=== PATIENT | male | born 1980 | race Caucasian/White ===

== ENCOUNTER 2020-09-26 21:11 | Emergency (ER) | payer BC, SELFPAY ==
[2020-09-26 21:14] VITALS: BP 153/91; PULSE 84; RESP 16; TEMP 36.8; O2SAT 98; BMI 33.0
--- NOTE | 2020-09-26 21:37 | ED_ITS ---
HPI - Extremity Problem General: Chief complaint: Extremity Problem,Nontraumatic Stated complaint: LFT FOOT PAIN Time Seen by Provider: 09/26/20 21:16 Source: patient Mode of arrival: ambulatory Limitations: no limitations History of Present Illness: HPI Narrative: Patient comes in for left lateral foot pain. Patient reports doing some training at work on Monday. 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 Patient was doing [place] straining and was walking barefoot on mats. Since then patient has had increased pain and discomfort to the left lateral foot at the fifth MTP joint. No obvious deformity is noted minimal swelling is noted. Review of Systems General: Reports: 10 or more systems reviewed and unremarkable except in HPI and below Musc: Reports: other (Left foot pain.) Physical Exam Const: COMMON NORMALS: no acute distress and patient oriented x3 GENERAL APPEARANCE: cooperative HENMT: COMMON NORMALS: normocephalic and Normal external nose present HEAD & SCALP: normal to inspection and normocephalic NOSE: Normal external nose present Eye: GENERAL EYE: appearance normal, both eyes and all related structures Neck/C-Spine: COMMON NORMALS: full ROM Chest: COMMONS NORMALS: normal inspection of the chest Resp: COMMON NORMALS: normal respiratory effort EFFORT & INSPECTION: Yes able to speak in complete sentences Cardio: COMMON NORMALS: regular rate and regular rhythm RATE: regular rate RHYTHM: regular rhythm GI: COMMON NORMALS: non-tender Extremity: NARRATIVE EXTREMITY EXAM: Tenderness is noted to the fifth MTP joint of the left foot. No obvious swelling or deformity is noted. No redness or ecchymosis is noted. Neuro: COMMON NORMALS: patient oriented x3 and moves all extremities Psych: COMMON NORMALS: mental status grossly normal and cooperative Skin: COMMON NORMALS: no rashes or lesions noted GENERAL SKIN EXAM: no rashes or lesions noted Course Vital Signs: Vital signs: Vital Signs Temperature 98.2 F 09/26/20 21:14 Pulse Rate 84 09/26/20 21:14 Respiratory Rate 16 09/26/20 21:14 Blood Pressure 153/91 09/26/20 21:14 Pulse Oximetry 98 09/26/20 21:14 MDM - Extremity (Nontraumatic) MDM Narrative: Medical decision making narrative: Patient comes in today for complaints of left foot pain. On exam patient has tenderness to the fifth MTP joint of the left foot. No obvious deformity, significant swelling or redness is noted to the joint. Differential diagnosis includes tendinitis, arthritis, stress fracture. Feel the patient probably does have some tendinitis to the area of foot. Patient rarely goes without shoes and was going barefoot on maps and probably just aggravated the joint and tendon in his foot. We will treat the patient with some prednisone and diclofenac for short course. Patient was recommended to follow-up with podiatry for persistent symptoms. Patient r eported understanding agreed to plan. Discharge Plan Discharge Patient Disposition: Home Clinical Impression: Arthralgia of foot, left Condition: Stable Prescriptions: New diclofenac sodium 75 mg tablet,delayed release (DR/EC) 75 mg PO BID Qty: 20 RF: 0 prednisone 20 mg tablet 20 mg PO BID 5 Days Qty: 10 RF: 0 Discharge Orders: Discharge ED (Routine); Ordered 09/26/20 Ordered By: Andres Lindsey Referrals: Juan Wallace DO [Emergency Department] - Discharge Diet: Usual diet Discharge Activity: Increase activity as tolerated Patient Instructions: Arthralgia (ED), Opioid Safety Stand Alone Forms: Work/School Release Coding Level of Care Code ED [employer] Bever[employer] Associate for Alpesh Noyola
[2020-09-26] MEDS: predniSONE 20 mg Tablet 60 MG PO (21:54)
[2020-09-26] MEDS: ketorolac 10 mg Tablet PO (21:54)
[2020-09-26 22:01] VITALS: RESP 15
== END 2020-09-26 22:01 | disposition home or self-care (01) ==
PROVIDERS: Emergency Provider Nurse Practitioner Family; PCP Family Medicine
DX: M25.572 Pain in left ankle and joints of left foot (principal)
CPT/HCPCS: 99283; J7512

== ENCOUNTER → 2024-07-08 15:57 | Outpatient (BNVA) | payer BC, SELFPAY | PROVIDERS: PCP Family Medicine; Visit Provider Family Medicine | DX: J18.9 Pneumonia, unspecified organism (principal) | CPT/HCPCS: 87400; 87426 ==

== ENCOUNTER → 2024-12-18 08:58 | Outpatient (BNVA) | payer SELFPAY | PROVIDERS: PCP Family Medicine; Visit Provider Physician Assistant | DX: M25.511 Pain in right shoulder (principal); S49.91XA Unspecified injury of right shoulder and upper arm, initial encounter; W01.0XXA Fall on same level from slipping, tripping and stumbling without subsequent striking against object, initial encounter | CPT/HCPCS: 73030 ==

== ENCOUNTER 2025-01-13 10:50 | Outpatient (CLI) | payer SELFPAY | END 2025-01-13 10:51 | disposition home or self-care (01) | LOC: LAB 01-18 10:48 | PROVIDERS: PCP Family Medicine; Visit Provider Family Medicine | DX: R42 Dizziness and giddiness (principal); R79.89 Other specified abnormal findings of blood chemistry; E83.42 Hypomagnesemia | CPT/HCPCS: 80053; 80061; 82306; 82607; 83735; 84439; 84443; 85025; 85651; 86140 ==